=== PATIENT | female | born 1995 | race Caucasian/White ===

== ENCOUNTER 2018-06-13 17:24 | Emergency (ER) | payer OTHER ==
[2018-06-13] MEDS ORDERED: Ketorolac Tromethamine 30 MG/ML VIAL ONE (18:06)
== END 2018-06-13 18:26 | disposition home or self-care (01) ==
LOC: ERS 17:24
DX: S39.012A Strain of muscle, fascia and tendon of lower back, initial encounter (principal); V89.2XXA Person injured in unspecified motor-vehicle accident, traffic, initial encounter
CPT/HCPCS: 96372; J1885